=== PATIENT | male | born 1975 | race American Indian/Alaskan Native ===

== ENCOUNTER 2019-11-06 20:10 | Emergency (ER) | payer OTHER ==
[2019-11-06] MEDS ORDERED: ACETAMINOPHEN 500 MG TAB PO ONE (23:58)
[2019-11-06] MEDS ORDERED: IBUPROFEN 600 MG TAB PO ONE (23:58)
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
[2019-11-07 00:48] VITALS: BP 151/96
== END 2019-11-07 00:45 | disposition home or self-care (01) ==
LOC: ED 20:10
DX: M62.830 Muscle spasm of back (principal); Z98.890 Other specified postprocedural states; Z79.1 Long term (current) use of non-steroidal anti-inflammatories (NSAID); Z79.899 Other long term (current) drug therapy; V49.49XA Driver injured in collision with other motor vehicles in traffic accident, initial encounter; Y93.89 Activity, other specified; Y92.410 Unspecified street and highway as the place of occurrence of the external cause; Y99.8 Other external cause status
CPT/HCPCS: 72100